=== PATIENT | male | born 2000 | race Caucasian/White ===

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

== ENCOUNTER 2020-01-13 00:25 | Emergency (ER) | payer MEDICAID ==
[~2020-01-13] VITALS: Ht 185.4 cm; Wt 93.1 kg
[2020-01-13 00:29] VITALS: BP 179/91
[2020-01-13] MEDS ORDERED: IBUP-1984 PO (00:34)
[2020-01-13] MEDS ORDERED: ibuprofen tablet 400 MG TABLET PO ONE (00:35)
== END 2020-01-13 00:43 | disposition home or self-care (01) ==
LOC: ER 00:25
DX: L55.0 Sunburn of first degree (principal); Z79.899 Other long term (current) drug therapy
CPT/HCPCS: 99282

== ENCOUNTER 2022-05-29 16:27 | Emergency (ER) | payer MEDICAID ==
[~2022-05-29] VITALS: Ht 185.4 cm; Wt 104.5 kg
[2022-05-29 17:28] LABS: ALANINE AMINOTRANSFERASE 61 U/L (12-78); ALBUMIN 4.6 G/DL (3.4-5.0); ALBUMIN/GLOBULIN RATIO 1.4 (1.1-1.5); ALKALINE PHOSPHATASE 70 IU/L (46-116); ANION GAP 9 (8-16); ASPARTATE AMINO TRANSFERASE 21 U/L (10-37); BILIRUBIN,TOTAL 1.9 MG/DL (0.1-1.0); BLOOD UREA NITROGEN 12 MG/DL (7-18); BUN/CREATININE RATIO 10.5 (5.4-32.0); CALCIUM 9.4 MG/DL (8.5-10.1); CHLORIDE 104 MMOL/L (99-107); CREATININE 1.14 MG/DL (0.60-1.10); GLUCOSE 103 MG/DL (70-104); LIPASE 83 U/L (73-393); POTASSIUM 3.8 MMOL/L (3.5-5.1); SODIUM 143 MMOL/L (135-145); TOTAL CARBON DIOXIDE 29.8 MMOL/L (24-32); TOTAL PROTEIN 7.8 G/DL (6.4-8.2); eGFR 81 ML/MIN
[2022-05-29 17:56] LABS: BASOPHILS % (AUTO) 0.6 % (0-1); EOSINOPHILS # (AUTO) 0.1 X10'3 (0-0.9); EOSINOPHILS % (AUTO) 0.8 % (0-6); HEMATOCRIT 42.9 % (42.0-52.0); HEMOGLOBIN 15.4 g/dl (14.0-17.9); LYMPHOCYTES # (AUTO) 0.7 X10'3 (1.1-4.8); LYMPHOCYTES % (AUTO) 9.3 % (21-51); MEAN CORPUSCULAR VOLUME 86.3 FL (78-98); MEAN PLATELET VOLUME 7.4 FL (7.4-10.4); MONOCYTES # (AUTO) 0.6 X10'3 (0-0.9); MONOCYTES % (AUTO) 7.5 % (2-12); NEUTROPHILS % (AUTO) 81.8 % (42-75); PLATELET COUNT 230 X10'3 (140-440); RED BLOOD COUNT 4.97 X10'6 (4.70-6.10); RED CELL DISTRIBUTION WIDTH 12.2 % (11.5-14.5); WHITE BLOOD COUNT 7.4 X10'3 (4.5-11.0)
[2022-05-29 17:58] LABS: MEAN CORPUSCULAR HGB CONC 35.9 g/dL (33.0-36.5)
[2022-05-29] MEDS ORDERED: pantoprazole 40 MG vial IV ONE (18:35)
[2022-05-29] MEDS ORDERED: ondansetron/PF 4mg/2ml inj IV ONE (18:35)
[2022-05-29] MEDS ORDERED: pantoprazole 40MG/NS 100ML BAG 100 ML IV ONE (18:37)
[2022-05-29 19:39] VITALS: BP 121/75
[2022-05-29] MEDS ORDERED: PANT-47 PO (20:17)
[2022-05-29] MEDS ORDERED: ONDA8TAB13 PO (20:17)
== END 2022-05-29 20:38 | disposition home or self-care (01) ==
LOC: ER 16:28
DX: R11.10 Vomiting, unspecified (principal); R10.9 Unspecified abdominal pain; I51.9 Heart disease, unspecified; F17.200 Nicotine dependence, unspecified, uncomplicated; F11.10 Opioid abuse, uncomplicated; Z88.2 Allergy status to sulfonamides; Z79.899 Other long term (current) drug therapy
CPT/HCPCS: 36415; 76700; 80053; 83690; 85025; 96365; 96375; 99284; C9113; J2405

== ENCOUNTER 2022-06-08 11:57 | Emergency (ER) | payer MEDICAID ==
[~2022-06-08] VITALS: Ht 185.4 cm; Wt 102.3 kg
[~2022-06-08 11:57] MED LIST changes: +ONDA8TAB13 PO; +PANT-47 PO
[2022-06-08 12:17] VITALS: BP 149/75
[2022-06-08] MEDS ORDERED: IBUP-1986 PO (13:27)
[2022-06-08] MEDS ORDERED: ibuprofen tablet 400 MG TABLET PO ONE (13:30)
== END 2022-06-08 13:37 | disposition home or self-care (01) ==
LOC: ER 11:58
DX: M25.522 Pain in left elbow (principal); X50.9XXA Other and unspecified overexertion or strenuous movements or postures, initial encounter; Y93.89 Activity, other specified; Y92.89 Other specified places as the place of occurrence of the external cause; Y99.8 Other external cause status
CPT/HCPCS: 73080; 99283

== ENCOUNTER 2022-06-11 10:56 | Emergency (ER) | payer MEDICAID ==
[~2022-06-11] VITALS: Ht 185.4 cm; Wt 102.0 kg
[~2022-06-11 10:56] MED LIST changes: +IBUP-1986 PO
[2022-06-11 11:55] VITALS: BP 140/61
== END 2022-06-11 16:59 | disposition home or self-care (01) ==
LOC: ER 10:57
DX: M25.522 Pain in left elbow (principal); I51.9 Heart disease, unspecified; F11.10 Opioid abuse, uncomplicated; Z88.2 Allergy status to sulfonamides; Z79.899 Other long term (current) drug therapy
CPT/HCPCS: 73080; 99283

== ENCOUNTER 2023-09-22 15:33 | Emergency (ER) | payer MEDICAID ==
[~2023-09-22] VITALS: Ht 185.4 cm; Wt 109.0 kg
[2023-09-22 15:38] VITALS: BP 171/84; PULSE 105; TEMP 97.7; O2SAT 99
[2023-09-22] MEDS: cyclobenzaprine 10mg tablet PO ONE (18:01)
[2023-09-22] MEDS: ibuprofen tablet 400 MG TABLET PO ONE (18:03)
[2023-09-22] MEDS ORDERED: CYCL-1 PO (18:12)
[2023-09-22 18:33] VITALS: RESP 20
[2023-09-22] MEDS: HYDROcodone/acetaminophen 10/325mg tab PO ONE (18:33)
== END 2023-09-22 18:52 | disposition home or self-care (01) ==
LOC: ER 15:33
DX: M54.50 Low back pain, unspecified (principal); F14.90 Cocaine use, unspecified, uncomplicated; Z79.899 Other long term (current) drug therapy; Z72.89 Other problems related to lifestyle; Z88.2 Allergy status to sulfonamides; Z79.1 Long term (current) use of non-steroidal anti-inflammatories (NSAID)
CPT/HCPCS: 99283

== ENCOUNTER 2023-11-06 21:12 | Emergency (ER) | payer MEDICAID, OTHER ==
[~2023-11-06] VITALS: Ht 185.4 cm; Wt 102.7 kg
[~2023-11-06 21:12] MED LIST changes: +CYCL-1 PO
[2023-11-06 22:03] LABS: BASOPHILS % (AUTO) 0.4 % (0-1); EOSINOPHILS # (AUTO) 0.1 X10'3 (0-0.9); HEMATOCRIT 46.5 % (42.0-52.0); HEMOGLOBIN 16.3 g/dl (14.0-17.9); LYMPHOCYTES # (AUTO) 1.1 X10'3 (1.1-4.8); MONOCYTES # (AUTO) 0.9 X10'3 (0-0.9); MONOCYTES % (AUTO) 13.8 % (2-12); NEUTROPHILS # (AUTO) 4.3 X10'3 (1.8-7.7); WHITE BLOOD COUNT 6.4 X10'3 (4.5-11.0)
[2023-11-06 22:04] LABS: EOSINOPHILS % (AUTO) 0.9 % (0-6); LYMPHOCYTES % (AUTO) 17.4 % (21-51); MEAN CORPUSCULAR HEMOGLOBIN 28.9 PG (27.0-31.0); MEAN CORPUSCULAR HGB CONC 35.1 g/dL (33.0-36.5); MEAN CORPUSCULAR VOLUME 82.4 FL (78-98); MEAN PLATELET VOLUME 7.2 FL (7.4-10.4); NEUTROPHILS % (AUTO) 67.5 % (42-75); PLATELET COUNT 276 X10'3 (140-440); RED BLOOD COUNT 5.64 X10'6 (4.70-6.10); RED CELL DISTRIBUTION WIDTH 12.9 % (11.5-14.5)
[2023-11-06 22:12] LABS: ALBUMIN 4.5 G/DL (3.4-5.0); ANION GAP 12 (8-16); BLOOD UREA NITROGEN 20 MG/DL (7-18); BUN/CREATININE RATIO 13.7 (10.0-20.0); CALCIUM 9.1 MG/DL (8.5-10.1); CHLORIDE 97 MMOL/L (99-107); CREATININE 1.46 MG/DL (0.60-1.10); GLUCOSE 94 MG/DL (70-104); LIPASE 61 U/L (16-77); POTASSIUM 3.4 MMOL/L (3.5-5.1); SODIUM 135 MMOL/L (135-145); eCRCL 89 ML/MIN; eGFR 60 ML/MIN
[2023-11-06] MEDS ORDERED: ONDA4TAB12 PO (22:44)
[2023-11-06] MEDS: ondansetron/PF 4mg/2ml inj IV ONE (22:49)
[2023-11-06] MEDS: normal saline 1000ML IV soln IVB ONE (22:49)
[2023-11-07 00:16] VITALS: BP 117/62; PULSE 80; RESP 18; TEMP 98.8; O2SAT 98
[2023-11-07 00:38] LABS: BILIRUBIN,URINE SMALL (Neg); CLARITY,URINE CLEAR (Clear); GLUCOSE, URINE NEGATIVE (Neg); KETONES,URINE TRACE mg/dl (Neg); LEUKOCYTE ESTERASE ,URINE NEGATIVE (Neg); NITRITES, URINE NEGATIVE (Neg); OCCULT BLOOD,URINE NEGATIVE (Neg); PROTEIN,URINE 30 mg/dl (Neg); UROBILINOGEN,URINE 0.2 E.U/dL (0.2-1.0)
[2023-11-07 00:45] LABS: COLOR,URINE DARK YELLOW (Yellow); UA COLLECTION TYPE URINAL
[2023-11-07 00:48] LABS: BACTERIA,URINE FEW /HPF (Neg); RBC,URINE 0-2 /HPF (0-2); SQUAMOUS EPITHELIAL CELL,UR FEW /LPF (FEW); WBC,URINE 0-4 /HPF (0-4)
== END 2023-11-07 00:18 | disposition home or self-care (01) ==
LOC: ER 21:12
DX: E86.0 Dehydration (principal); R19.7 Diarrhea, unspecified; Z88.2 Allergy status to sulfonamides; Z79.899 Other long term (current) drug therapy; Z79.1 Long term (current) use of non-steroidal anti-inflammatories (NSAID)
CPT/HCPCS: 36415; 80048; 81001; 83690; 85025; 96361; 96374; 99283; J2405; J7030

== ENCOUNTER 2024-06-05 09:18 | Emergency (ER) | payer MEDICAID ==
[~2024-06-05] VITALS: Ht 185.4 cm; Wt 102.3 kg
[~2024-06-05 09:18] MED LIST changes: +ONDA-243 PO; +ONDA-245 PO; -ONDA8TAB13 PO
[2024-06-05 09:29] VITALS: BP 130/74; PULSE 96; TEMP 97.8; O2SAT 9
[2024-06-05 09:47] VITALS: RESP 16
== END 2024-06-05 11:16 | disposition home or self-care (01) ==
LOC: ER 09:18
DX: T18.8XXA Foreign body in other parts of alimentary tract, initial encounter (principal); F14.90 Cocaine use, unspecified, uncomplicated; Z88.2 Allergy status to sulfonamides; W44.F3XA Food entering into or through a natural orifice, initial encounter; Y93.89 Activity, other specified; Y92.89 Other specified places as the place of occurrence of the external cause; Y99.8 Other external cause status
CPT/HCPCS: 70360; 99283

== ENCOUNTER 2024-06-21 18:08 | Emergency (ER) | payer MEDICAID ==
[~2024-06-21] VITALS: Ht 185.4 cm; Wt 104.5 kg
[2024-06-21 18:09] VITALS: BP 156/85; PULSE 103; TEMP 98.5; O2SAT 98
[2024-06-21] MEDS ORDERED: ketorolac trometh 15mg/ml vial 15 MG/ML ML IM ONE (19:30)
[2024-06-21 19:41] VITALS: RESP 16
[2024-06-21] MEDS: ketorolac trometh 30MG/ML vial 30 MG/ML VIAL IV ONE (19:41)
[2024-06-21] MEDS ORDERED: INDO-12 PO (20:09)
[2024-06-21] MEDS ORDERED: HYDR-3965 PO ×2 (20:09→20:32)
== END 2024-06-21 20:58 | disposition home or self-care (01) ==
LOC: ER 18:09
DX: M10.9 Gout, unspecified (principal); F14.90 Cocaine use, unspecified, uncomplicated; Z88.2 Allergy status to sulfonamides; Z79.899 Other long term (current) drug therapy
CPT/HCPCS: 96374; 99283; J1885